=== PATIENT | female | born 1995 | race Caucasian/White ===

== ENCOUNTER 2017-09-10 22:07 | Emergency (ER) | payer BC, SELFPAY | END 2017-09-11 00:52 | disposition home or self-care (01) | PROVIDERS: Emergency Provider Emergency Medicine; Visit Provider Emergency Medicine | DX: M94.0 Chondrocostal junction syndrome [Tietze] (principal); R07.89 Other chest pain | CPT/HCPCS: 71020; 81025; 87275; 87276; 96372; 99284 ==

== ENCOUNTER 2017-10-26 11:25 | Emergency (ER) | payer BC, SELFPAY ==
[2017-10-26 11:37] VITALS: BP 129/68; PULSE 119; RESP 20; TEMP 37.2; O2SAT 97; BMI 24.0
[2017-10-26 11:48] LABS: UTC Influenza A Antigen Negative (Negative); UTC Influenza B Antigen Negative (Negative)
--- NOTE | 2017-10-26 12:21 | HMH.EDUTC ---
[facility] [place] Impression: Influenza-like illness Left otitis media Qualifiers: Otitis media type: suppurative Chronicity: acute Recurrence: not specified as recurrent Spontaneous tympanic membrane rupture: without spontaneous rupture Qualified Code(s): H66.002 - Acute suppurative otitis media without spontaneous rupture of ear drum, left ear Disposition: Home, Self-Care Condition on Discharge: Good Instructions: DI for Viral Upper Respiratory Infection -- Adult, DI for Otitis Media (Middle Ear Infection)-Child Additional Instructions: * Start antibiotic TOÑO for ear infection and be sure to take as ordered for the FULL length of time although you should start to feel better in 24-48 hours. Will not help the flu like symptoms but those seem to be already improving. * Monitor Temp. Tylenol every 4 hours as needed no more then 5 times a day or 4000mg in 24 hours and/or ibuprofen every 6 hours as needed no more then 3200mg in 24 hours (as long as your primary care doctor has told you that it is ok to take both) for fever/aches/pain. ER if fever no less than 101 despite tylenol and ibuprofen * Encourage fluids, water, gatorade, powerade, pedialyte if infant/toddler/child * warm salt water gargles * warm fluids * sore throat lozenges * sleep elevated * humidifier/vaporizer * flonase 2 sprays each nostril daily but may take 2-3 days to notice improvement with it. * Antihistamine (Claritin, eloy, zyrtec) of your choice daily * Follow up with primary care Immediately for new or worsening symptoms, no noticeable improvement in 48-72 hours, you get better then suddenly get worse AND in 10-14 days to ensure ears are back to baseline. Prescriptions: Amoxicillin [Amoxicillin 875MG Tab] 875 mg PO Q12H #20 tab Forms: Work/School Release Time of Disposition: 12:32 Medical Decision Making Vital Signs: 10/26/17 11:37 Temperature 98.9 F Temperature Source Temporal Artery Scan Pulse Rate [Left Brachial] 119 H Respiratory Rate 20 Blood Pressure [Left Arm] 129/68 Blood Pressure Mean [Left Arm] 88 Blood Pressure Source [Left Arm] Automatic Cuff Blood Pressure Position [Left Arm] Sitting 02 Sat by Pulse Oximetry 97 Oxygen Delivery Method Room Air - Lab Data Lab results reviewed: Yes: I reviewed the patient's lab results. Lab Results 10/26/17 11:29: Influenza Type A Ag Negative, Influenza Type B Ag Negative - Randall Inquiry Pt receiving controlled substance: No [facility] [place] - General Stated complaint: flu like symptoms Time Seen by Provider: 10/26/17 12:21 Mode of Arrival: Ambulatory Source of Information: Patient Limitations: No Limitations Description of Symptoms (Recalled from Triage Doc. by RN): c/o fever, cough, congestion since thursday HEENT Symptoms (Recalled from RN notes): No Resp Symptoms (Recalled from RN notes): Yes (cough, congestion) Skin Symptoms (Recalled from RN notes): No MS Symptoms (Recalled from RN notes): No Functional Status (Recalled from RN notes): n/a - History of Present Illness Provider Complaint: c/o fever, chest congestion, cough. Started Thursday, 5 days ago. Aches resolved. Sore throat improving but now hoarse. Fever nearly resolved . Tylenol/motrin help. No known sick contacts. - Related Data Previous Rx's Medication Instructions Recorded Amoxicillin [Amoxicillin 875MG Tab] 875 mg PO Q12H #20 tab 10/26/17 Allergies Allergy/AdvReac Type Severity Reaction Status Date / Time No Known Allergies Allergy Verified 10/26/17 11:41 - Worker's Comp Is this a Worker's Comp case?: No [facility] History I have reviewed the patient's past medical history: Yes (denies PMHx) Medical History: Denies:: Cancer, Diabetes Mellitus Type 1, Diabetes Mellitus Type 2, Hypertension, MRSA Other Surgeries: Yes: No Previous Surgery Amputation: No Fractures: No - *Social History Smoking Status: Never smoker Alcohol Intake: never - Psychiatric History Expresses thoughts of danni
--- NOTE | 2017-10-26 12:26 | ED_ITS ---
[facility] [place] Clinical Impression: Influenza-like illness Left otitis media Qualifiers: Otitis media type: suppurative Chronicity: acute Recurrence: not specified as recurrent Spontaneous tympanic membrane rupture: without spontaneous rupture Qualified Code(s): H66.002 - Acute suppurative otitis media without spontaneous rupture of ear drum, left ear Disposition: Home, Self-Care Condition on Discharge: Good Instructions: DI for Viral Upper Respiratory Infection -- Adult, DI for Otitis Media (Middle Ear Infection)-Child Additional Instructions: * Start antibiotic TOÑO for ear infection and be sure to take as ordered for the FULL length of time although you should start to feel better in 24-48 hours. Will not help the flu like symptoms but those seem to be already improving. * Monitor Temp. Tylenol every 4 hours as needed no more then 5 times a day or 4000mg in 24 hours and/or ibuprofen every 6 hours as needed no more then 3200mg in 24 hours (as long as your primary care doctor has told you that it is ok to take both) for fever/aches/pain. ER if fever no less than 101 despite tylenol and ibuprofen * Encourage fluids, water, gatorade, powerade, pedialyte if infant/toddler/ child * warm salt water gargles * warm fluids * sore throat lozenges * sleep elevated * humidifier/vaporizer * flonase 2 sprays each nostril daily but may take 2-3 days to notice improvement with it. * Antihistamine (Claritin, eloy, zyrtec) of your choice daily * Follow up with primary care Immediately for new or worsening symptoms, no noticeable improvement in 48-72 hours, you get better then suddenly get worse AND in 10-14 days to ensure ears are back to baseline. Prescriptions: Amoxicillin [Amoxicillin 875MG Tab] 875 mg PO Q12H #20 tab Forms: Work/School Release Time of Disposition: 12:32 Medical Decision Making Vital Signs: 10/26/17 11:37 Temperature 98.9 F Temperature Source Temporal Artery Scan Pulse Rate [Left Brachial] 119 H Respiratory Rate 20 Blood Pressure [Left Arm] 129/68 Blood Pressure Mean [Left Arm] 88 Blood Pressure Source [Left Arm] Automatic Cuff Blood Pressure Position [Left Arm] Sitting 02 Sat by Pulse Oximetry 97 Oxygen Delivery Method Room Air - Lab Data Lab results reviewed: Yes: I reviewed the patient's lab results. Lab Results 10/26/17 11:29: Influenza Type A Ag Negative, Influenza Type B Ag Negative - Randall Inquiry Pt receiving controlled substance: No [facility] [place] HPI - General Stated complaint: flu like symptoms Time Seen by Provider: 10/26/17 12:21 Mode of Arrival: Ambulatory Source of Information: Patient Limitations: No Limitations Description of Symptoms (Recalled from Triage Doc. by RN): c/o fever, cough, congestion since thursday HEENT Symptoms (Recalled from RN notes): No Resp Symptoms (Recalled from RN notes): Yes (cough, congestion) Skin Symptoms (Recalled from RN notes): No MS Symptoms (Recalled from RN notes): No Functional Status (Recalled from RN notes): n/a - History of Present Illness Provider Complaint: c/o fever, chest congestion, cough. Started Thursday, 5 days ago. Aches resolved. Sore throat improving but now hoarse. Fever nearly resolved . Tylenol/motrin help. No known sick contacts. - Related Data Previous Rx's Medication Instructions Recorded Amoxicillin [Amoxicillin 875MG Tab] 875 mg PO Q12H #20 tab 10/26/17 Allergies Allergy/AdvReac Typ
[2017-10-26 12:38] VITALS: BP 129/68; PULSE 119; RESP 20; TEMP 37.2; O2SAT 97
== END 2017-10-26 12:42 | disposition home or self-care (01) ==
PROVIDERS: Emergency Provider Nurse Practitioner Family
DX: H66.002 Acute suppurative otitis media without spontaneous rupture of ear drum, left ear (principal)
CPT/HCPCS: 87804; 99202

== ENCOUNTER 2021-01-12 14:07 | Emergency (ER) | payer BC, SELFPAY ==
[2021-01-12 14:15] VITALS: BP 125/86; PULSE 109; RESP 20; TEMP 36.9; O2SAT 96; BMI 23.9
--- NOTE | 2021-01-12 14:50 | HMH.EDUTC ---
[facility] [place]: Acute superficial venous thrombosis of right lower extremity Disposition: Home, Self-Care Condition on Discharge: Good Instructions: Superficial Thrombophlebitis Additional Instructions: Warm Compresses to area Keep elevated Compression stockings to help with blood flow Follow up with Cardiology and Family Physician for further evaluation and monitoring for changes or worsening of symptoms Return if needed Straight to ER if any life threatening symptoms Prescriptions: Ibuprofen [Ibuprofen 800mg Tablet] 800 mg PO Q8HP PRN #20 tab PRN Reason: Moderate Pain Transmission Status: Received by [facility] [id number] Mazin.stocking,Knee,Reg,Smal [T.e.d. Anti-Embolism Stocking] 1 each MC ONCE #2 each Prescription Printed Referrals: Dona Willis APRN [Nurse Practitioner] - Skyler Ch PA [Physician Assistant Baseball Coach] - (Call office for appointment) Provider,Referral, [Primary Care Provider] - Time of Disposition: 16:24 Medical Decision Making - Randall Inquiry Pt receiving controlled substance: No Randall was queried for this patient: No Vital Signs: 01/12/21 14:15 01/12/21 16:34 Temperature 98.4 F 98.4 F Temperature Source Oral Pulse Rate 109 H Pulse Rate [Right Brachial] 109 H Respiratory Rate 20 20 Blood Pressure 125/86 Blood Pressure [Right Arm] 125/86 Blood Pressure Mean [Right Arm] 99 Blood Pressure Source [Right Arm] Automatic Cuff Blood Pressure Position [Right Arm] Sitting 02 Sat by Pulse Oximetry 96 Oxygen Delivery Method Room Air - US Data US Images: Lower Extremity ED US Reviewed: Yes: I have reviewed the patient's US results Findings Narrative: No evidence of DVT in the veins scanned of the right lower extremity. SVT seen in the GSV just distal to the popliteal fossa. Medical Decision Narrative: charge histotechnologist notified for Venous Doppler advised would come in and do study patient agreed to wait awaiting arrival Patient awaiting venous Doppler Patient educated on importance of warm compress, NSAID and compression stockings and was given prescription and told to go straight and get them and wear them as advised Patient was educated to call Cardiology Clinic on Thursday and make appointment and follow up with Family Doctor for further treatment and evaluation and monitoring Patient verbalized understanding and agreed [facility] [place] - General Stated complaint: pain in Rt calf, unknown origin Time Seen by Provider: 01/12/21 14:50 Mode of Arrival: Ambulatory Source of Information: Patient Limitations: No Limitations Description of Symptoms (Recalled from Triage Doc. by RN): PATIENT C/O SWELLING OF VEINS AND REDNESS IN RIGHT CALF. STATES THE MUSCLE IN THAT LEG POPPED IN SEPTEMBER OF THIS YEAR, NO OTHER INJURY HEENT Symptoms (Recalled from RN notes): No Resp Symptoms (Recalled from RN notes): No Skin Symptoms (Recalled from RN notes): No MS Symptoms (Recalled from RN notes): Yes Functional Status (Recalled from RN notes): WNL - History of Present Illness Provider Complaint: Patient states that in September she felt something pop in her right calf area and had some pain states that since then she has noticed she has some veins that was sticking out on the inside of her right lower leg States that she noticed a little red area that was sore and felt warm about a few hours ago but wasnt really hurting so she came in to get it checked Denies history of DVT Denies pain - Related Data Previous Rx's Medication Instructions Recorded Mazin.stocking,Knee,Reg,Smal 1 each ONCE #2 each 01/12/21 [T.e.d. Anti-Embolism Stocking] Ibuprofen [Ibuprofen 800mg 800 mg PO Q8HP PRN #20 tab 01/12/21 Tablet] Allergies Allergy/AdvReac Type Severity Reaction Status Date / Time No Known Allergies Allergy Verified 11/14/19 14:12 - Worker's Comp Is this a Worker's Comp case?: No [facility] History - Hepatitis A Screen Drug use history?: No High risk
--- NOTE | 2021-01-12 15:41 | CA_ITS ---
APPROVED REPORT Right Lower Extremity Venous Study for DVT. Golf Cart Attendant: MILAGRO Indications Lower Extremity Pain: Right swelling redness right lower leg. Patient states she had a pop in her RLE in September. She has had pain since with redness today distal to the popliteal fossa. She states she walks a bunch and is on her feet alot. Vein Imaging CFV (R): compressive, spontaneous, phasic, augmentation FEM (R): compressive, spontaneous, phasic, augmentation POP (R): compressive, spontaneous, phasic, augmentation PTV (R): Compressible GSV (R): Thrombus SSV (R): Compressible Peroneals (R):Compressible GAS (R): Compressible Findings No evidence of DVT in the veins scanned of the right lower extremity. SVT seen in the GSV just distal to the popliteal fossa. Conclusion No evidence of DVT in the veins scanned of the right lower extremity. SVT seen in the GSV just distal to the popliteal fossa. Electronically signed by : Garrison Flores MD 01/14/2021 17:04:51
[2021-01-12 16:34] VITALS: BP 125/86; PULSE 109; RESP 20; TEMP 36.9; O2SAT 96
== END 2021-01-12 16:38 | disposition home or self-care (01) ==
PROVIDERS: Emergency Provider Nurse Practitioner
DX: I82.811 Embolism and thrombosis of superficial veins of right lower extremity (principal); E10.9 Type 1 diabetes mellitus without complications
CPT/HCPCS: 93971; 99202; G0463

== ENCOUNTER 2021-12-03 01:41 | Emergency (ER) | payer BC, SELFPAY ==
--- NOTE | 2021-12-03 01:39 | ECG_ITS ---
APPROVED REPORT Exam: Resting ECG HR:94 bpm ECG Measurements Heart Rate 94 AXES IN 148 P 73 QRSd 93 QRS 86 QT 327 T 27 QTc 379 Conclusion SINUS RHYTHM WITH SINUS ARRHYTHMIA NONSPECIFIC T-WAVE ABNORMALITY BORDERLINE ECG UNCONFIRMED REPORT Electronically signed by : Derek Boyd MD 12/03/2021 16:33:16
[2021-12-03 01:43] VITALS: BP 123/84; PULSE 83; RESP 18; TEMP 36.8; O2SAT 99; BMI 25.6
--- NOTE | 2021-12-03 01:52 | XR_ITS ---
PROCEDURE INFORMATION: Exam: XR Chest Exam date and time: 12/03/2021 1:59 AM Age: 26 years old Clinical indication: On breathing and sternal or substernal pain; Additional info: Chest pain TECHNIQUE: Imaging protocol: XR of the chest. Views: 2 views. COMPARISON: CR CXR CHEST(2 VIEWS-NOT PORTABLE) 09/10/2017 10:33 PM FINDINGS: Lungs: Unremarkable. No consolidation. Pleural spaces: Unremarkable. No pleural effusion. No pneumothorax. Heart/Mediastinum: Unremarkable. No cardiomegaly. Bones/joints: Unremarkable. IMPRESSION: No acute findings.
[2021-12-03 02:04] LABS: Chloride 103 mmol/L (98-107)
[2021-12-03 02:05] LABS: Potassium 3.9 mmoL/L (3.5-5.1); Sodium 138 mmol/L (136-145)
[2021-12-03 02:06] LABS: Coronavirus 19, PCR Not Detected (NotDetected); Influenza A, PCR Not Detected (NotDetected); Influenza B, PCR Not Detected (NotDetected)
[2021-12-03 02:07] LABS: Blood Urea Nitrogen 14 mg/dl (7-17); Creatinine Clearance Estimated 172 mL/min (50-200); Estimated Glomerular Filt Rate 150 ml/min (>60); GFR (African American) 182 ML/MIN (>60)
[2021-12-03 02:08] LABS: Anion Gap 11.9 mEq/L (5-15); Calcium 9.1 mg/dl (8.4-10.2); Carbon Dioxide 27 mmol/L (22.0-30.0); Glucose 96 mg/dl (74-100); Magnesium 1.8 mg/dl (1.6-2.3)
[2021-12-03 02:13] LABS: C-Reactive Protein 1.4 mg/L (0-4)
[2021-12-03 02:24] LABS: Troponin I < 0.01 ng/ml (0.00-0.034)
[2021-12-03 02:26] LABS: Basophils # 0.2 K/mm3 (0-0.2); Basophils % 1.8 % (0.1-2.0); Eosinophils # 0.4 K/mm3 (0.0-0.4); Eosinophils % 4.3 % (0.1-12.0); Hematocrit 45.1 % (37.0-47.0); Hemoglobin 15.1 g/dL (12.2-16.2); Lymphocytes # 2.8 K/mm3 (0.7-4.5); Lymphocytes % 33.9 % (10-50); Mean Corpuscular HGB Conc 33.5 g/dL (31.8-35.4); Mean Corpuscular Hemoglobin 33.2 pg (27.0-31.2); Mean Corpuscular Volume 99.1 fl (81-99); Mean Platelet Volume 8.9 fl (7.4-10.4); Monocytes # 0.4 K/mm3 (0.1-1.0); Monocytes % 5.4 % (1.7-9.3); Neutrophils # 4.5 K/mm3 (1.8-7.8); Neutrophils % 54.6 % (37.0-80.0); Platelet Count 272 K/mm3 (142-424); Procalcitonin 0.047 ng/mL (0.0-2.0); Red Blood Count 4.54 M/mm3 (4.20-5.40); Red Cell Distribution Width 12.6 % (11.5-17.5); White Blood Count 8.2 K/mm3 (4.8-10.8)
--- NOTE | 2021-12-03 02:41 | HMH.EDCP ---
ED Disposition Clinical Impression: Atypical chest pain Disposition: Home, Self-Care Condition on Discharge: Good Instructions: DI for Atypical Chest Pain Additional Instructions: see pcp for follow up Referrals: Provider,Referral, [Primary Care Provider] - - Critical Care Critical Care Time: No Attestation: On 12/03/21, the high probability of a clinically significant, sudden or life threatening deterioration of the following system(s) required my full and direct attention, intervention and personal management. The time I documented below is in addition to time spent performing reported procedures but includes the following listed in this critical care notation. Medical Decision Making - Medical Records Medical records reviewed: Yes: I reviewed the patient's medical records. - Randall Inquiry Pt receiving controlled substance: No Vital Signs: 12/03/21 01:43 Temperature 98.2 F Temperature Source Oral Pulse Rate [Apical] 83 Respiratory Rate 18 Blood Pressure [Right Arm] 123/84 Blood Pressure Mean [Right Arm] 97 Blood Pressure Source [Right Arm] Automatic Cuff Blood Pressure Position [Right Arm] Sitting 02 Sat by Pulse Oximetry 99 Oxygen Delivery Method Room Air - Lab Data Lab results reviewed: Yes: I reviewed the patient's lab results. Lab Results 12/03/21 01:45: WBC 8.2, RBC 4.54, Hgb 15.1, Hct 45.1, MCV 99.1 H, MCH 33.2 H, MCHC 33.5, RDW 12.6, Plt Count 272, MPV 8.9, Neut % (Auto) 54.6, Lymph % (Auto) 33.9, [place] % (Auto) 5.4, Eos % (Auto) 4.3, Baso % (Auto) 1.8, Neut # (Auto) 4.5, Lymph # (Auto) 2.8, [place] # (Auto) 0.4, Eos # (Auto) 0.4, Baso # (Auto) 0.2 12/03/21 01:45: Sodium 138, Potassium 3.9, Chloride 103, Carbon Dioxide 27, Anion Gap 11.9, BUN 14, Creatinine 0.50 L, Estimated Creat Clear 172, Estimated GFR 150, Est GFR ( Amer) 182, Glucose 96, Calcium 9.1, Troponin I < 0.01, C-Reactive Protein 1.4 12/03/21 01:45: ESR 15 12/03/21 01:45: Magnesium 1.8, Procalcitonin 0.047 12/03/21 02:03: SARS-CoV-2 (PCR) Not detected, Influenza A Untype (PCR) Not detected, Influenza Type B (PCR) Not detected Result diagrams: 12/03/21 01:45 12/03/21 01:45 Orders (Tests/Meds): ED MEDICATIONS Generic Name Dose Route Start Last Admin Trade Name Freq PRN Reason Stop Dose Admin Lactated Ringer's 1,000 mls @ 999 mls/hr 12/03/21 02:00 12/03/21 02:02 Lactated Ringer's 1000 Ml Bag IV 12/03/21 03:00 999 mls/hr .Q1H1M CATARINA Administration Nitroglycerin 0.4 mg 12/03/21 01:52 12/03/21 02:02 Nitroglycerin 0.4mg Sl Tablet SL 12/04/21 01:52 0.4 mg Q5MINP PRN Administration Chest Pain Discontinued Medications Generic Name Dose Route Start Last Admin Trade Name Freq PRN Reason Stop Dose Admin Aspirin 324 mg 12/03/21 01:52 12/03/21 02:02 Aspirin 81mg Chewable Tablet PO 12/03/21 01:53 324 mg ONCE ONE Administration ORDERS Category Date Time Status XR chest 2V Stat Exams 12/03/21 01:52 Taken Troponin I Q3H Lab 12/03/21 05:00 Ordered Troponin I Q3H Lab 12/03/21 08:00 Ordered - Radiology Data #1 Image(s): Chest Image Reviewed: Yes I reviewed the patient's radiology image Preliminary Findings: Abnormal - ECG Data Tracing #1 I reviewed this ECG and interpreted as documented below: Normal Sinus Rhythm: Yes Ischemic changes: non-specific ST-T wave changes Medical Decision Narrative: has atypical chest pain with stable exam and labs Chest Pain HPI - General Chief Complaint: Chest Pain Stated Complaint: chest pain Time Seen by Provider: 12/03/21 02:00 Mode of Arrival: Ambulatory Source of Information: Patient, Medical Record Limitations: No Limitations Description of Symptoms (Recalled from ER Triage Doc. by RN): Patient states that she began having chest palpitations and an elevated heart rate 12/01/21 in the evening, went to bed, woke up yesterday with continued chest pain that radiated to her left jaw. Says the pain has gotten wor
[2021-12-03 02:57] LABS: Erythrocyte Sedimentation Rate 15 mm/hr (0-20)
[2021-12-03 03:27] VITALS: BP 115/78; PULSE 79; RESP 18; TEMP 36.8; O2SAT 99
== END 2021-12-03 03:28 | disposition home or self-care (01) ==
PROVIDERS: Emergency Provider Emergency Medicine; PCP Emergency Medicine
DX: R07.89 Other chest pain (principal); R42 Dizziness and giddiness
CPT/HCPCS: 71046; 80048; 83735; 84145; 84484; 85025; 85651; 86140; 93005; 96365; 96375; 99284; C9803; U0003; U0005

== ENCOUNTER 2023-02-14 12:09 | Emergency (ER) | payer BC, SELFPAY ==
[2023-02-14 12:10] VITALS: BP 124/82; PULSE 104; RESP 18; TEMP 36.7; O2SAT 98; BMI 24.4
--- NOTE | 2023-02-14 12:56 | EXP.UTC ---
Discharge Plan Disposition Patient Disposition: Home, Self-Care Condition: Good Prescriptions Prescriptions: New azithromycin [Zithromax] 250 mg tablet 250 mg PO UD DOSE PK Qty: 6 0RF Rx Instructions: Take two (2) tablets today, then one (1) tablet days #2 thru #5 benzonatate [benzonatate] 100 mg capsule 100 mg PO TIDP PRN (Reason: Cough) Qty: 30 0RF methylprednisolone 4 mg Tablets,Dose Pack 4 mg PO DIRECTED Qty: 21 0RF No Action ibuprofen 800 MG tablet 800 mg PO Q8HP PRN (Reason: Moderate Pain) Qty: 20 0RF (DME) barbara.stocking,knee,reg,smal 1 EACH misc 1 each MC ONCE Qty: 2 0RF Referrals Follow up/Referrals: Provider,Referral, MD [Primary Care Provider] - See instructions Activity Restrictions/Add. Instructions Additional Instructions/Restrictions: Drink plenty of fluids. Take tylenol or ibuprofen for pain or fever. Take the medications as directed. Follow up with your regular doctor. GO TO THE ER FOR ANY WORSENING SYMPTOMS Clinical Impressions Clinical Impression: Acute bronchitis, Acute pharyngitis Stand Alone Forms Stand Alone Forms: Work/School Release Instructions Patient Instructions: Acute Bronchitis, DI for Acute Bronchitis Discharge ED Provider: Cedrick Nieto [facility] General Stated complaint: Cough,Congestion Mode of Arrival: Ambulatory Source of Information: Patient Limitations: No Limitations Time Seen by Provider: 02/14/23 12:56 HEENT Symptoms (Recalled from RN notes): Yes Resp Symptoms (Recalled from RN notes): No Skin Symptoms (Recalled from RN notes): No MS Symptoms (Recalled from RN notes): No Functional Status (Recalled from RN notes): wnl History of Present Illness Provider Complaint: Patient complains of congestion, cough and fatigue for 2 weeks now. Related Data Previous Rx's Medication Instructions Recorded barbara.stocking,knee,reg,smal #2 ea 01/12/21 ibuprofen 800 mg tablet 800 mg PO Q8HP PRN Moderate Pain 01/12/21 #20 tabs azithromycin 250 mg tablet 250 mg PO UD DOSE PK #6 tabs 02/14/23 (Zithromax) benzonatate 100 mg capsule 100 mg PO TIDP PRN Cough #30 caps 02/14/23 methylprednisolone 4 mg tablets in 4 mg PO DIRECTED #21 tabs 02/14/23 a dose pack Allergies Allergy/AdvReac Type Severity Reaction Status Date / Time No Known Allergies Allergy Verified 02/21/22 08:50 Worker's Comp Is this a Worker's Comp case?: No [facility] Disclaimer: The information contained in this section may have been updated after the patient was seen, as this information can be updated by other users. Social History Smoking Status: Never smoker alcohol intake: never substance use type: denies use current occupational status: other Travel in the last 8 weeks: None household members: family housing: house ROS Obtained: Yes All systems reviewed & no additional complaints except as documented Constitutional Constitutional: Reports chills and Reports fever(s) Eyes Eyes: Denies eye discharge ENT Ears, Nose, Mouth, and Throat: Reports as per HPI Cardiovascular Cardiovascular: Denies chest pain Respiratory Respiratory: Denies chest congestion and Reports cough Gastrointestinal Gastrointestingal: Reports nausea; Denies abdominal pain, constipation, cramping, diarrhea or vomiting Musculoskeletal Musculoskeletal: Denies arthralgias Integumentary/Breasts Skin/Breast: Denies rash Neurologic Neurologic: Denies paresthesias Physical Exam General General appearance: alert and in no apparent distress Head Head exam: atraumatic, normocephalic and normal inspection Eye Eye exam: Present normal appearance, PERRL and EOMI ENT ENT exam: Present mucous membranes moist and normal external ear exam Expanded ENT Exam TM/Canal exam: Bilateral TM: erythema and bulging Nose exam: Absent sinus tenderness Mouth exam: Present normal external inspection; Absent drooli
[2023-02-14 13:40] VITALS: BP 124/82; PULSE 104; RESP 18; TEMP 36.7; O2SAT 98
== END 2023-02-14 13:41 | disposition home or self-care (01) ==
PROVIDERS: Emergency Provider Nurse Practitioner Family
DX: J20.9 Acute bronchitis, unspecified (principal); J02.9 Acute pharyngitis, unspecified; R53.83 Other fatigue
CPT/HCPCS: 99212; 99214; G0463

== ENCOUNTER 2024-07-18 14:38 | Outpatient (CLI) | payer BC, SELFPAY | END 2024-07-18 23:59 | disposition home or self-care (01) | LOC: LAB.DROPOF 07-19 14:39 | PROVIDERS: PCP Student in an Organized Health Care Education/Training Program; Visit Provider Student in an Organized Health Care Education/Training Program | DX: J02.9 Acute pharyngitis, unspecified (principal) | CPT/HCPCS: 87070 ==